=== PATIENT | female | born 1965 | race Caucasian/White ===

== ENCOUNTER 2019-12-29 21:46 | Emergency (ER) | payer OTHER ==
[~2019-12-29] VITALS: Ht 172.7 cm; Wt 95.6 kg
[2019-12-29 23:20] LABS: BASOPHILS # (AUTO) 0.06 x10^3/uL (0-0.1); BASOPHILS % (AUTO) 1 % (0-1); EOSINOPHILS # (AUTO) 0.23 x10^3/uL (0-0.4); EOSINOPHILS % (AUTO) 3 % (1-7); LYMPHOCYTES # (AUTO) 2.33 x10^3/uL (1-3.4); LYMPHOCYTES % (AUTO) 26 % (22-44); MD NO; MEAN CORPUSCULAR HEMOGLOBIN 28.5 pg (27.0-34.8); MEAN CORPUSCULAR HGB CONC 33.2 g/dL (32.4-35.8); MEAN CORPUSCULAR VOLUME 85.8 fL (80-100); MEAN PLATELET VOLUME 8.8 fL (7.4-10.4); MONOCYTES # (AUTO) 0.58 x10^3/uL (0.2-0.8); MONOCYTES % (AUTO) 6 % (2-9); NEUTROPHILS % (AUTO) 65 % (42-75); PLATELET COUNT 220 x10^3/uL (130-400); RED BLOOD COUNT 5.64 x10^6/uL (3.82-5.3); RED CELL DISTRIBUTION WIDTH 13.6 % (9.6-15.2)
[2019-12-29 23:43] LABS: ALANINE AMINOTRANSFERASE 47 U/L (12-78); ALBUMIN 3.8 g/dL (3.4-5.0); ANION GAP 10 mmol/L (5-15); CALCIUM 9.1 mg/dL (8.5-10.1); CHLORIDE 110 mmol/L (98-107); CREATININE 1.12 mg/dL (0.55-1.02)
[2019-12-29 23:45] LABS: ALKALINE PHOSPHATASE 69 U/L (45-117); BILIRUBIN,TOTAL 0.6 mg/dL (0.2-1.0); TOTAL PROTEIN 7.5 g/dL (6.4-8.2)
--- NOTE | 2019-12-30 00:45 | NUR ---
REPORT FROM CAT RN. PT RESTING WITH ICE PACK. PT HAS NO NEEDS AT THIS TIME. CALL LIGHT IN REACH
[2019-12-30 01:10] VITALS: BP 142/97
--- NOTE | 2019-12-30 02:01 | NUR ---
PT VERBALIZED UNDERSTANDING OF DISCHARGE INSTRUCTIONS. PT AMBULATED TO DISCHARGE WITH A STEADY GAIT.
== END 2019-12-30 02:05 | disposition home or self-care (01) ==
LOC: ED 12-30 01:28
DX: N63.0 Unspecified lump in unspecified breast (principal); R07.89 Other chest pain; Z87.891 Personal history of nicotine dependence
CPT/HCPCS: 10035; 19285; 36415; 71046; 80053; 85025; 99285

== ENCOUNTER → 2019-12-31 | Outpatient (CLI) | payer OTHER | END | disposition home or self-care (01) | LOC: CFH 07:00 | PROVIDERS: ATTEND Surgery | DX: N63.22 Unspecified lump in the left breast, upper inner quadrant (principal) | CPT/HCPCS: 76642; 77066; G0279 ==

== ENCOUNTER 2020-02-16 06:47 | Day surgery (SDC) | payer OTHER ==
[~2020-02-16] VITALS: Ht 172.7 cm; Wt 90.8 kg
[2020-02-16] MEDS ORDERED: SODIUM CHLORIDE 0.9% 1,000 ML IV ONE (07:14)
[2020-02-16] MEDS ORDERED: CEFAZOLIN PMX 1GM/50ML 50 ML IV STA (07:14)
[2020-02-16 07:26] VITALS: BP 145/86
[2020-02-16] MEDS ORDERED: CEFAZOLIN PMX 1GM/50ML 50 ML ONE (07:34)
[2020-02-16] MEDS ORDERED: LIDOCAINE 1%, 10ML ONE (09:12)
[2020-02-16] MEDS ORDERED: LIDOCAINE 1%, 20ML ONE (09:12)
[2020-02-16] MEDS ORDERED: NALOXONE 1 MG/ML, 2ML ONE (09:24)
[2020-02-16] MEDS ORDERED: FENTANYL PF 100 MCG/2ML ONE (09:24)
[2020-02-16] MEDS ORDERED: MIDAZOLAM 1 MG/ML, 5ML ONE (09:24)
[2020-02-16] MEDS ORDERED: FLUMAZENIL 0.1 MG/1 ML, 5ML ONE (09:24)
== END 2020-02-16 11:20 | disposition home or self-care (01) ==
LOC: OUT 06:47 → EDSTATUS 09:00 → OUT 11:20
PROVIDERS: ATTEND Internal Medicine Hematology & Oncology
DX: Z45.2 Encounter for adjustment and management of vascular access device (principal); C50.412 Malignant neoplasm of upper-outer quadrant of left female breast; Z79.899 Other long term (current) drug therapy; Z17.1 Estrogen receptor negative status [ER-]; Z98.890 Other specified postprocedural states; Z87.891 Personal history of nicotine dependence; Z80.3 Family history of malignant neoplasm of breast
CPT/HCPCS: 36561; 76937; 77001; 99156; 99157; C1788; J0690; J1642; J2250; J3010; J7030; J2310